=== PATIENT | male | born 1980 | race Caucasian/White ===

== ENCOUNTER 2024-01-02 14:26 | Emergency (ER) | payer MEDICAID, SELFPAY ==
--- NOTE | 2024-01-02 14:30 | XR_ITS ---
Examination: Testicular sonography complete TECHNIQUE: Multiple high resolution grayscale sonographic images testes, assessment arterial inflow venous outflow Doppler spectral analysis carful analysis Exam date and time: January 02, 2024 1507 hours INDICATIONS: Testicular swelling with (nonhealing wound between the right and left testicle with discharge 3 days FINDINGS: Right testis 4.2 x 2.2 x 2.9 cm Epididymis 12 mm Arterial flow testicle. No testicular mass Mild hydrocele Left testis 3.8 x 2.2 x 3.0 cm Epididymis 10 mm Arterial flow testicle. No testicular mass Mild hydrocele Midline between the right and left testicle soft tissue mass with internal echoes 5.6 x 2.6 x 4.7 cm IMPRESSION: Soft tissue abscess between the testicles 5.6 x 2.6 x 4.7 cm, recommend CT scan pelvis post intravenous contrast follow-up
[2024-01-02 14:50] VITALS: BP 164/102; PULSE 100; RESP 18; TEMP 36.9; O2SAT 99; BMI 23.7
[2024-01-02 15:06] LABS: Basophils # (Auto) 0.2 Thou/mm3 (0.0-0.2); Basophils % (Auto) 2 % (0-2.5); Eosinophils # (Auto) 0.5 Thou/mm3 (0.0-0.5); Eosinophils % (Auto) 5 % (0-10); Hematocrit 45.1 % (41.0-53.0); Hemoglobin 15.4 g/dL (13.5-16.0); Immature Granulocytes % (Auto) 1 % (0-0); Immature Granulocytes Auto 0.08 Thou/mm3 (0.00-0.00); Lymphocytes # (Auto) 2.8 Thou/mm3 (1.0-4.8); Lymphocytes % (Auto) 28 % (10-50); Mean Corpuscular HGB Conc 34.1 g/dl (31.0-37.0); Mean Corpuscular Hemoglobin 29.5 pg (25.0-35.0); Mean Corpuscular Volume 86 fL (80-100); Monocytes # (Auto) 0.7 Thou/mm3 (0.0-0.8); Monocytes % (Auto) 7 % (0-12); Neutrophils # (Auto) 5.8 Thou/mm3 (1.8-7.7); Neutrophils % (Auto) 58 % (37-80); Nucleated Red Blood Cell % 0 /100 WBC (0); Platelet Count 376 Thou/mm3 (140-440); RDW Standard Deviation 38.4 fL (35.1-43.9); Red Blood Count 5.22 Miln/mm3 (4.50-5.90); White Blood Count 10.1 Thou/mm3 (3.8-10.6)
[2024-01-02 15:24] LABS: Alanine Aminotransferase 15 U/L (10-49); Albumin, Serum 4.5 gm/dL (3.5-5.0); Albumin/Globulin Ratio 1.4 (1.2-2.2); Alkaline Phosphatase 95 U/L (46-116); Anion Gap 4 (7-16); Aspartate Amino Transferase 18 U/L (0-34); BUN/Creatinine Ratio 13 Ratio (12-20); Bilirubin,Total 0.5 mg/dL (0.3-1.2); Blood Urea Nitrogen 14 mg/dL (9-23); Calcium 9.7 mg/dL (8.3-10.6); Calcium (Corrected) 9.7 mg/dL (8.5-10.1); Carbon Dioxide 31.7 mMol/L (20.0-31.0); Chloride 102 mMol/L (98-107); Creatinine (Component) 1.1 mg/dL (0.6-1.3); Globulin 3.2 gm/dL (2.3-3.5); Glucose 82 mg/dL (74-106); Osmolality,Calculated 275 (275-295); Potassium 4.3 mMol/L (3.4-5.1); Sodium 138 mMol/L (136-145); Total Protein 7.7 gm/dL (5.7-8.2); eGFR > 60 See Note
[2024-01-02 15:45] LABS: Collection Type, Urine Clean Catch
[2024-01-02 15:58] LABS: Amorphous Crystals,Urine Present (Absent); Bilirubin,Urine Negative (Negative); Blood,Urine Negative (Negative); Color,Urine Yellow (Lt Yel-Yel); Glucose, Urine Negative (Negative); Ketones,Urine Negative (Negative); Leukocyte Esterase,Urine Positive (Negative); Nitrite,Urine Negative (Negative); PH,Urine 6.5 (5.0-7.0); Protein,Urine Trace (Neg - Trace); RBC,Urine 8 /hpf (0-3); Specific Gravity,Urine 1.025 (1.001-1.035); Squamous Epithelial Cell,Urine < 1 /hpf (0-5); Urobilinogen,Urine Negative mg/dL (0.0-1.0); WBC,Urine 29 /hpf (0-5)
[2024-01-02 16:06] LABS: Clarity,Urine Hazy (Clear/Hazy); Culture Indicated,Urine Yes
[2024-01-02 16:18] LABS: Amphetamine/Methamp Scrn,U Positive (Negative); Barbiturate Screen,Urine Negative (Negative); Benzodiazepines Screen,Urine Negative (Negative); Benzoylecgonine Screen, Ur Negative (Negative); Fentanyl Screen,Urine Negative (Negative); Opiate Screen,Urine Negative (Negative); THC Screen,Urine Positive (Negative)
--- NOTE | 2024-01-02 16:22 | XR_ITS ---
Examination: CT abdomen with intravenous contrast CT pelvis with intravenous contrast 2-D coronal reconstructions 2-D sagittal reconstructions Date and time of exam:January 02, 2024 1841 hours INDICATIONS: Redness swelling and pain in the testicle region since 3 days ago. CTDI: vol (mGy) 6.81 DLP: (mGycm) 420 Technique: Multiple axial sections of the abdomen and pelvis have been obtained. 64 slice high-resolution scanner used. 3 mm axial sections have been obtained, post intravenous injection 60 cc Isovue-370 2-D sagittal, coronal reconstructions obtained. Low dose protocols were performed. One or more of the following dose reduction techniques were used; automated exposure control, adjustment of the mA and/or KV according to patient size, use of iterative reconstruction technique. Findings: 4 mm pulmonary nodule left lower lobe image 31 No focal liver or splenic lesions Contracted gallbladder No pancreatic or adrenal mass No renal or ureteral calculi, no hydronephrosis Aorta normal size No bowel obstruction Normal appendix No bowel obstruction No diverticulitis Intact urinary bladder Normal seminal vesicles Normal prostate Suggestion of fluid-filled abscess, 28 mm, axial image 247 between the testicles, which is better visualized on the testicular sonogram today Perineum is unremarkable and no perianal abscess is depicted IMPRESSION: 4 mm pulmonary nodule left lower lobe, recommend PA lateral chest follow-up Suggestion of 28 mm fluid-filled abscess between the testicles, which is better visualized on the testicular sonogram today No perineal inflammation no perianal abscess
--- NOTE | 2024-01-02 16:22 | PD.EDRME ---
Rapid Medical Screening Exam RME Arrival date/time: 01/02/24 14:26 43-year-old male presents emergency department complaint of testicular pain and swelling Chief Complaint: Urogenital-Male Time Seen by Provider: 01/02/24 14:30 Vital signs: Vital Signs Temperature 98.4 F 01/02/24 14:50 Pulse Rate 100 01/02/24 14:50 Respiratory Rate 18 01/02/24 14:50 Blood Pressure 164/102 H 01/02/24 14:50 Pulse Oximetry (%) 99 01/02/24 14:50 Oxygen Delivery Method Room Air 01/02/24 14:50
[2024-01-02 17:21] LABS: HIV (1&2) Antibody Rapid Non-Reactive
[2024-01-02 17:43] LABS: Syphilis Reactive (Nonreactive)
[2024-01-02 17:44] LABS: MHATP/TP-PA* See Sep Rpt
--- NOTE | 2024-01-02 19:44 | EDNOTE_ITS ---
ED Male Genitalurinary RME/HPI General Chief complaint: Urogenital-Male Stated complaint: TESTICLES POPPED YESTERDAY Time Seen by Provider: 01/02/24 14:30 Source: patient Arrival date/time: 01/02/24 14:26 Mode of arrival: ambulatory Limitations: no limitations RME / HPI RME / HPI Narrative: 01/02/24 14:26 43-year-old male presents emergency department complaint of testicular pain and swelling Dr. Lindsay?s Main ED Evaluation: 43-year-old male patient who has a history of recent STD treatment approximately four months ago who notes he has worsening swelling of his scrotum for the last week and then for the last two days he had a rupture of pearlings come out of the middle bottom portion of his scrotum. He denied penile discharge. Four months ago he received ?a shot? but did not receive any tablets for his STDs. He is unclear as to his HIV status. Related Data Home Medications ?Medication ?Instructions ?Recorded ?Confirmed amoxicillin 500 mg capsule 500 mg PO TID #0 caps 04/19/14 Previous Rx's ?Medication ?Instructions ?Recorded Sulfamethoxazole/Trimethoprim DS * 1 tab PO BID #20 tabs 04/19/14 (BACTRIM DS *) ibuprofen 600 mg tablet 1 tab PO Q8HR PRN pain #30 tabs 01/09/16 doxycycline hyclate 100 mg capsule 100 mg PO BID #28 caps 01/02/24 metronidazole 500 mg tablet 500 mg PO BID #20 tabs 01/02/24 Allergies Allergy/AdvReac Type Severity Reaction Status Date / Time NKA* Allergy Uncoded 01/02/24 14:29 Review of Systems Review of Systems Systems Reviewed: All systems reviewed, normal except as documented Past Medical History Past Medical History CARDIAC: Positive Hypertension (no meds/wants to atempt diet control); Negative Congestive Heart Failure RESPIRATORY: Negative Chronic Obstructive Pulmonary Disease (COPD) GENITOURINARY: Negative Renal Disease ENDOCRINE: Negative Diabetes Mellitus Type 1 or Diabetes Mellitus Type 2 Social History SMOKING STATUS: Current every day smoker ED Exam Narrative Physical exam: GENERAL APPEARANCE: AxOx4, generally well-appearing, no acute distress. HEENT: NC, AT. MMM. EOMI, clear conjunctiva, oropharynx clear. NECK: Supple without lymphadenopathy. No stiffness or restricted ROM. HEART: Normal rate and regular rhythm, normal S1/S1, no m/r/g LUNGS: CTAB, moving air well. No crackles or wheezes are heard. ABDOMEN: Soft, nontender, nondistended with good bowel sounds heard. BACK: No midline C/T/L spine pain or deformity, No CVAT, no obvious deformity. EXTREMITIES: Without cyanosis, clubbing or edema. GENITALIA: Patient has got a swollen thickened scrotal wall, particularly on the inferior pole between the two testicles, and a one centimeter lesion that has closed without active drainage. MUSCULOSKELETAL: FROM of all major joints, no chest tenderness NEUROLOGICAL: Grossly nonfocal. Alert and oriented, moving all 4 extremities. CN not formally tested but appear grossly intact. Observed to ambulate with normal gait. Skin: Warm and dry without any rash. General Limitations: Present no limitations Course Course Course Narrative: 2323: Patient states he does not want to be transferred to [facility] at this time. He is signing out AGAINST MEDICAL ADVICE. Quality Measures none Orders Category Date Time Status CT Screening NOW Care 01/02/24 16:[address] abdomen pelvis w con Stat Exams 01/02/24 16:22 Completed US testicular Stat Exams 01/02/24 14:30 Completed CBC Stat Lab 01/02/24 14:47 Completed Comprehensive Metabolic Panel Stat Lab 01/02/24 14:47 Completed Drug Screen,Urine Stat Lab 01/02/24 15:26 Completed MHATP/TP-PA* Stat Lab 01/02/24 16:30 Received Syphilis Stat Lab 01/02/24 16:30 Completed UA, C/S IF [Urinalysis, C/S if Indicated] Stat Lab 01/02/24 15:38 Completed Urine Culture Stat Lab 01/02/24 15:38 Received Doxycycline [Vibramycin] Med 01/02/24 20:36 Discontinued 100 mg PO X1 ONE Penicillin G Pot Inj [K Pen G Inj] Med 01/02/24 20:36 Discontinued 2.4 mmu IM X1 ONE Vancomycin Inj 1,000 mg Med 01/02/24 22:19 Active Sodium Chloride 0.9% 250 ml [Ns] 250 ml IV X1 cefTRIAXone/D5w 1gm IV premix [Rocephin/D5w 1gm IV Med 01/02/24 20:36 Discontinued premix] 50 ml IV X1 Vital Signs Vital signs: Vital Signs Temperature 98.4 F 01/02/24 14:50 Pulse Rate 100 01/02/24 14:50 Respiratory Rate 18 01/02/24 14:50 Blood Pressure 164/102 H 01/02/24 14:50 Pulse Oximetry (%) 99 01/02/24 14:50 Oxygen Delivery Method Room Air 01/02/24 14:50 Urogenital - Male MDM Narrative MDM Narrative:: Scribe Attestation: IQuintin am scribing for and in the presence of Dr. Lindsay. Provider Notation: Although this document has been carefully reviewed, there may still be some phonetic and other typographical errors. These errors are purely grammatical due to imperfections in the software program and should not be construed in any way to compromise the substance of the patient's medical care during this visit. Patient data External records reviewed:: [facility] previous records Clinical information provided by:: patient Social determinants that could affect healthcare access:: none Patient has the following chronic illnesses:: HTN, STD How is presenting disease/condition affected by chronic disease/condition?: uneffected by Evaluation data The following diagnostics were reviewed and interpreted by me:: lab results and radiology exam(s) Lab and/or radiology exams considered but not ordered:: None Interpretation Summary: I personally reviewed the radiology data and agree with the radiologist's interpretation. Examination: Testicular sonography complete TECHNIQUE: Multiple high resolution grayscale sonographic images testes, assessment arterial inflow venous outflow Doppler spectral analysis carful analysis Exam date and time: January 02, 2024 1507 hours INDICATIONS: Testicular swelling with (nonhealing wound between the right and left testicle with discharge 3 days FINDINGS: Right testis 4.2 x 2.2 x 2.9 cm Epididymis 12 mm Arterial flow testicle. No testicular mass Mild hydrocele Left testis 3.8 x 2.2 x 3.0 cm Epididymis 10 mm Arterial flow testicle. No testicular mass Mild hydrocele Midline between the right and left testicle soft tissue mass with internal echoes 5.6 x 2.6 x 4.7 cm IMPRESSION: Soft tissue abscess between the testicles 5.6 x 2.6 x 4.7 cm, recommend CT scan pelvis post intravenous contrast follow-up Dictated By: Baltazar Erickson MD Examination: CT abdomen with intravenous contrast CT pelvis with intravenous contrast 2-D coronal reconstructions 2-D sagittal reconstructions Date and time of exam:January 02, 2024 1841 hours INDICATIONS: Redness swelling and pain in the testicle region since 3 days ago. Findings: 4 mm pulmonary nodule left lower lobe image 31 No focal liver or splenic lesions Contracted gallbladder No pancreatic or adrenal mass No renal or ureteral calculi, no hydronephrosis Aorta normal size No bowel obstruction Normal appendix No bowel obstruction No diverticulitis Intact urinary bladder Normal seminal vesicles Normal prostate Suggestion of fluid-filled abscess, 28 mm, axial image 247 between the testicles, which is better visualized on the testicular sonogram today Perineum is unremarkable and no perianal abscess is depicted IMPRESSION: 4 mm pulmonary nodule left lower lobe, recommend PA lateral chest follow-up Suggestion of 28 mm fluid-filled abscess between the testicles, which is better visualized on the testicular sonogram today No perineal inflammation no perianal abscess Dictated By: Baltazar Erickson MD Medications / Prescriptions Medications or Prescriptions considered but not ordered:: None Medication administrations:: Medication Administration History Vancomycin HCl 1,000 mg/ (Sodium Chloride) 250 mls @ 150 mls/hr IV X1 ONE Stop: 01/02/24 23:58 Last Admin: 01/02/24 22:31 Dose: 150 mls/hr Documented By: FERNANDO Discontinued Medications Doxycycline Hyclate (Doxycycline 100 Mg Tablet) 100 mg PO X1 ONE Stop: 01/02/24 20:37 Last Admin: 01/02/24 21:05 Dose: 100 mg Documented By: IGLESIA Ceftriaxone Sodium/Dextrose (Rocephin/D5w 1gm Iv Premix) 50 mls @ 100 mls/hr IV X1 ONE Stop: 01/02/24 21:05 Last Infusion: 01/02/24 22:19 Dose: Infused Documented By: Admin: 01/02/24 21:04 Dose: 100 mls/hr Documented By: IGLESIA Penicillin G Potassium (Penicillin G Pot Inj 20 Mmu Vial) 2.4 mmu IM X1 ONE Stop: 01/02/24 20:37 Last Admin: 01/02/24 23:23 Dose: Not Given Documented By: FERNANDO Non-Admin Reason: Medication Not Available As above, if any Consultations Consultation(s) initiated? (list below): Yes Consultation #1 (Physician, Specialty, Details): Discussed case with [facility]'s transfer center. Discussed patients ED course, exam findings, labs, and radiology results. Awaiting a callback on whether or not they accept the patient for transfer. Time: 22:13 Consultation #2 (Physician, Specialty, Details): Dr. Bello from [facility] accepts the patient for transfer. They are advising that if the patient is transferred to their facility, the patient will be waiting in the ED to be seen until tomorrow morning. Time: 23:14 Diagnosis Urogenital Male Differential Diagnosis: epididymitis and other (testicular abscess, scrotal abscess) Most likely diagnosis given after review of the tests above:: see below Admission Indicated Admission indicated?: not indicated Admission Request Was there a request for admission?: No Disposition Plan Disposition Plan: other (specify) (Patient signed out AMA.) Discharge Plan Plan Patient Disposition: Left Against Medical Advice Prescriptions/Referrals Prescriptions/Med Rec: New doxycycline hyclate 100 mg capsule 100 mg PO BID Qty: 28 0RF metronidazole 500 mg tablet 500 mg PO BID Qty: 20 0RF No Action amoxicillin 500 MG capsule 500 mg PO TID Qty: 0 Sulfamethoxazole/Trimethoprim DS * (BACTRIM DS *) 1 TAB tablet 1 tab PO BID Qty: 20 0RF ibuprofen 600 MG tablet 1 tab PO Q8HR PRN (Reason: pain) Qty: 30 0RF Referrals: Dhruv Bartlett MD [Primary Care Provider] - In 1 week Problem List Clinical Impression: Abscess of testis, Syphilis Patient/Caregiver Discharge Instructions Education Materials: Understanding STIs, Syphilis Additional Instructions: Follow-up with your primary care doctor in 2 to 3 days for recheck. You can return to the emergency department sooner if symptoms worsen or if he notes any new, concerning issues. Print Language: South Sudanese
[2024-01-02 20:00] VITALS: BP 191/113; PULSE 68; RESP 18; TEMP 36.9; O2SAT 100
[2024-01-02] MEDS: cefTRIAXone/D5w 1gm IV premix 50 ML IV (21:04)
[2024-01-02] MEDS: DOXYCYCLINE 100 MG TABLET PO (21:05)
--- NOTE | 2024-01-02 21:10 | PC.NURSE ---
[facility] FAXED PAPERWORK FOR POSSIBLE UROLOGY TRANSFER
[2024-01-02 22:00] VITALS: BP 170/93; PULSE 86; RESP 16; TEMP 36.5; O2SAT 99
[2024-01-02] MEDS: Vancomycin Inj 1,000 MG in SODIUM CHLORIDE 0.9% 250 ML 250 ML 150 MG IV (22:31)
--- NOTE | 2024-01-02 23:26 | PC.NURSE ---
THIS PT IS ACCEPTED TO [facility] BY DR. PIERCE. THIS IS A ER:ER TRANSFER AND NUMBER FOR REPORT IS [phone]. BIN WAS THE FACILITY REP I SPOKE TO FOR ACCEPTING INFORMATION.
--- NOTE | 2024-01-02 23:32 | PC.NURSE ---
I PUT A CALL OUT TO [facility] AND INFORMED THEM THAT THIS PT IS SIGNING OUT AMA
--- NOTE | 2024-01-02 23:32 | PC.NURSE ---
WAS JUST ADVISED BY PRIMARY RN THAT PATIENT IS SIGNING OUT AMA BECAUSE HE STATES HE DOESN'T NEED TO GO TO [place]
--- NOTE | 2024-01-02 23:38 | PC.NURSE ---
Pt refusing transfer to higher level of care, and signed the AMA form, Pt however, will be DC
--- NOTE | 2024-01-02 23:45 | PC.NURSE ---
Pt agrees to wait until current antibiotics to finish and then will be DC.
== END 2024-01-03 00:01 | disposition home or self-care (01) ==
PROVIDERS: Nurse Practitioner Primary Care; Emergency Provider Emergency Medicine; PCP Family Medicine
DX: N45.4 Abscess of epididymis or testis (principal); A53.9 Syphilis, unspecified
CPT/HCPCS: 36415; 74177; 76870; 80053; 80307; 81001; 85025; 86703; 86780; 87086; 96365; 96367; 99285; A4649; J0696; J3371; J7050; Q9967; A9270; J3370

== ENCOUNTER 2024-01-31 08:46 | Emergency (ER) | payer MEDICAID, SELFPAY ==
[2024-01-31 08:55] VITALS: BP 177/117; PULSE 119; RESP 17; TEMP 37; O2SAT 99; BMI 22.9
--- NOTE | 2024-01-31 09:22 | XR_ITS ---
Examination: CT pelvis with intravenous contrast. 2-D sagittal and coronal reconstructions. Date and time of exam:January 31, 2024 1243 hours INDICATIONS: Onset testicular pain beginning 2 weeks ago scrotal edema and pain CTDI: vol (mGy) :7.22 DLP: (mGycm) : 291 Technique: Multiple 3 mm axial sections of the pelvis have been obtained with the 64 slice high resolution scanner. 2-D sagittal and coronal reconstructions. Intravenous administration 60 cc Isovue-370 Low dose protocols were performed. One or more of the following dose reduction techniques were used; automated exposure control, adjustment of the mA and/or KV according to patient size, use of iterative reconstruction technique. Findings: Nonobstructive bowel gas pattern No pericecal inflammatory change No diverticulitis Urinary bladder wall thickening up to 3 mm Abundant stool in the rectum No prostatomegaly No inguinal hernias Abscess in the perineum at the base of the scrotum, axial image 144, measuring 4.3 x 2.5 x 5.2 cm IMPRESSION: Large abscess in the perineum, at the base of the scrotum, 4.3 x 2.5 x 5.2 cm Recommend testicular sonography follow-up
--- NOTE | 2024-01-31 09:42 | EDNOTE_ITS ---
ED Male Genitalurinary RME/HPI General Chief complaint: Urogenital-Male Stated complaint: TESTICULAR PAIN/SWELLING Time Seen by Provider: 01/31/24 08:58 Arrival date/time: 01/31/24 08:46 RME / HPI RME / HPI Narrative: This section includes all my notes and documentations, including HPI, PE, and ED course.? Raj Lawson MD HPI: 43 year old male here with a couple month history of scrotal swelling and redness and warmth and pain. Was here about a week ago. Was diagnosed with abscess and arranged transfer. But patient left AMA. He's here today because he's getting worse. With subjective fever and chill and aches. No other complaints. ROS: All negative except as documented in HPI. Physical Exam: General:? Alert and oriented.? No acute distress when remaining still. Eyes:? Conjunctivae and lids clear.? ENT:? No nasal congestion.? Neck:? Supple.? Heart:? RRR.? Lungs:? No respiratory distress.? Good air movement.? No rhonchi, wheezing, rales.?? Skin:? Warm and dry.??Grapefruit sized scrotal edema noted with erythema and calor and tenderness. Neuro:? Alert and oriented X 3.? I reviewed EMS and retirement notes. My review of the pelvic CT report is laarge abscess in the perineum, at the base of the scrotum, 4.3 x 2.5 x 5.2 cm. Blood tests and urine tests reamarkable for WBC 20.5, UTI, and Positive Syphilis Serology. At this point, diagnoses include?Scrotal Abscess, UTI, Syphilis. Treatment here included?Levaquin, Toradol, Tylenol, and Morphine. He remained stable. I discussed the case with Dr. Segura ([facility] Urology).? About the presentation and exam and diagnostics and treatments here.? And need of further care there.? Will accept the patient. Raj Lawson MD Related Data Home Medications ?Medication ?Instructions ?Recorded ?Confirmed amoxicillin 500 mg capsule 500 mg PO TID #0 caps 04/19/14 Previous Rx's ?Medication ?Instructions ?Recorded Sulfamethoxazole/Trimethoprim DS * 1 tab PO BID #20 tabs 04/19/14 (BACTRIM DS *) ibuprofen 600 mg tablet 1 tab PO Q8HR PRN pain #30 tabs 01/09/16 doxycycline hyclate 100 mg capsule 100 mg PO BID #28 caps 01/02/24 metronidazole 500 mg tablet 500 mg PO BID #20 tabs 01/02/24 Allergies Allergy/AdvReac Type Severity Reaction Status Date / Time No Known Allergies Allergy Verified 01/31/24 08:50 Course Quality Measures none Orders Category Date Time Status CT Screening NOW Care 01/31/24 09:22 Completed Saline [Insert IV] NOW Care 01/31/24 09:22 Completed Straight [In and Out Catheter] X1 Care 01/31/24 09:23 Completed Referral - Farm Management Agent Stat Cons 01/31/24 13:52 Active Transfer to another facility [Transfer/Discharge] Stat Discharge 01/31/24 16:[address] pelvis w con Stat Exams 01/31/24 09:22 Completed Blood Culture (Lab) Stat Lab 01/31/24 09:48 Completed CBC Stat Lab 01/31/24 09:48 Completed CMP [Comprehensive Metabolic Panel] Stat Lab 01/31/24 09:48 Completed CRP [C-Reactive Protein] Stat Lab 01/31/24 09:48 Completed Drug Screen,Urine Stat Lab 01/31/24 10:52 Completed ESR [Sed Rate (ESR)] Stat Lab 01/31/24 09:48 Completed Lactate (Lactic Acid) Stat Lab 01/31/24 09:48 Completed MHATP/TP-PA* Stat Lab 01/31/24 09:48 Completed Magnesium Stat Lab 01/31/24 09:48 Completed Procalcitonin Stat Lab 01/31/24 09:48 Completed Syphilis Stat Lab 01/31/24 09:48 Completed UA [Urinalysis] Stat Lab 01/31/24 10:52 Completed Acetaminophen Ivpb [Ofirmev Inj] Med 01/31/24 16:17 Discontinued 1,000 mg in 100 ml IV NOW Ketorolac Inj [Toradol Inj] Med 01/31/24 09:42 Discontinued 30 mg IVP X1 ONE Levofloxacin/D5w 750Mg Ivpb [Levaquin Ivpb] Med 01/31/24 09:30 Discontinued 750 mg in 150 ml IV QDAY Morphine Inj Med 01/31/24 11:03 Discontinued 4 mg IVP X1 ONE Morphine Inj Med 01/31/24 16:17 Discontinued 6 mg IVP X1 ONE Vital Signs Vital signs: Vital Signs Temperature 98.6 F 01/31/24 08:55 Pulse Rate 119 H 01/31/24 08:55 Respiratory Rate 17 01/31/24 08:55 Blood Pressure 177/117 H 01/31/24 08:55 Pulse Oximetry (%) 99 01/31/24 08:55 Oxygen Delivery Method Room Air 01/31/24 08:55 Urogenital - Male Patient data External records reviewed:: [facility] previous records Clinical information provided by:: patient Social determinants that could affect healthcare access:: substance use Patient has the following chronic illnesses:: substance abuse and syphilis How is presenting disease/condition affected by chronic disease/condition?: exacerbated by Evaluation data The following diagnostics were reviewed and interpreted by me:: lab results and radiology exam(s) Lab and/or radiology exams considered but not ordered:: none Interpretation Summary: scrotal abscess and uti and syphilis Medications / Prescriptions Medications or Prescriptions considered but not ordered:: none Medication administrations:: Medication Administration History Discontinued Medications Levofloxacin/Dextrose (Levaquin Ivpb) 750 mg in 150 mls @ 100 mls/hr IV QDAY WILFRIDO Stop: 02/07/24 09:29 Last Infusion: 01/31/24 11:34 Dose: Infused Documented By: Admin: 01/31/24 10:04 Dose: 100 mls/hr Documented By: PARTHA Acetaminophen (Ofirmev Inj) 1,000 mg in 100 mls @ 250 mls/hr IV NOW ONE Stop: 01/31/24 16:40 Last Infusion: 01/31/24 18:34 Dose: Infused Documented By: Admin: 01/31/24 16:43 Dose: 250 mls/hr Documented By: TM Ketorolac Tromethamine (Ketorolac Inj 30 Mg/Ml Vial) 30 mg IVP X1 ONE Stop: 01/31/24 09:43 Last Admin: 01/31/24 10:04 Dose: 30 mg Documented By: TM Morphine Sulfate (Morphine Sulf Inj 10 Mg/Ml Vial) 4 mg IVP X1 ONE Stop: 01/31/24 11:04 Last Admin: 01/31/24 12:54 Dose: 4 mg Documented By: TM Morphine Sulfate (Morphine Sulf Inj 10 Mg/Ml Vial) 6 mg IVP X1 ONE Stop: 01/31/24 16:18 Last Admin: 01/31/24 16:43 Dose: 6 mg Documented By: TM levaquin and todadol and tylenol and levaquin Consultations Consultation(s) initiated? (list below): No Diagnosis Urogenital Male Differential Diagnosis: urinary tract infection, urethritis, epididymitis, prostatitis, acute retention of urine, inguinal hernia and other (abscess and sti) Most likely diagnosis given after review of the tests above:: scrotal abscess and uti and syphilis Admission Indicated Admission indicated?: not indicated Explain why admission is indicated or not indicated:: no urology service here Admission Request Was there a request for admission?: No Disposition Plan Disposition Plan: Transfer Discharge Plan Plan Patient Disposition: [facility] Facility Pt Being Transferred to: [facility] Service Needed for Transfer: Urology Patient condition on transfer: Stable Prescriptions/Referrals Prescriptions/Med Rec: No Action amoxicillin 500 MG capsule 500 mg PO TID Qty: 0 Sulfamethoxazole/Trimethoprim DS * (BACTRIM DS *) 1 TAB tablet 1 tab PO BID Qty: 20 0RF ibuprofen 600 MG tablet 1 tab PO Q8HR PRN (Reason: pain) Qty: 30 0RF doxycycline hyclate 100 mg capsule 100 mg PO BID Qty: 28 0RF metronidazole 500 mg tablet 500 mg PO BID Qty: 20 0RF Referrals: No Primary/Family,Physician [Primary Care Provider] - In 1 week Problem List Clinical Impression: Scrotal abscess, UTI (urinary tract infection), Syphilis Patient/Caregiver Discharge Instructions Print Language: Turkmen Stand Alone Forms: [employer] Award Info., Patient Portal Info Letter
[2024-01-31] MEDS: LEVOFLOXACIN/D5W 750MG IVPB 750 MG/150 ML BAG 100 MG IV (10:04)
[2024-01-31] MEDS: KETOROLAC INJ 30 MG/ML VIAL IVP (10:04)
[2024-01-31 10:06] LABS: Lactate (Lactic Acid) 1.1 mMol/L (0.4-2.0)
[2024-01-31 10:08] LABS: Basophils # (Auto) 0.1 Thou/mm3 (0.0-0.2); Basophils % (Auto) 1 % (0-2.5); Eosinophils # (Auto) 0.2 Thou/mm3 (0.0-0.5); Eosinophils % (Auto) 1 % (0-10); Hematocrit 44.5 % (41.0-53.0); Hemoglobin 15.5 g/dL (13.5-16.0); Immature Granulocytes % (Auto) 1 % (0-0); Immature Granulocytes Auto 0.17 Thou/mm3 (0.00-0.00); Lymphocytes # (Auto) 1.7 Thou/mm3 (1.0-4.8); Lymphocytes % (Auto) 8 % (10-50); Mean Corpuscular HGB Conc 34.8 g/dl (31.0-37.0); Mean Corpuscular Volume 86 fL (80-100); Monocytes # (Auto) 2.2 Thou/mm3 (0.0-0.8); Monocytes % (Auto) 11 % (0-12); Neutrophils # (Auto) 16.1 Thou/mm3 (1.8-7.7); Neutrophils % (Auto) 79 % (37-80); Nucleated Red Blood Cell % 0 /100 WBC (0); Platelet Count 241 Thou/mm3 (140-440); RDW Standard Deviation 39.8 fL (35.1-43.9); Red Blood Count 5.16 Miln/mm3 (4.50-5.90); White Blood Count 20.5 Thou/mm3 (3.8-10.6)
[2024-01-31 10:18] LABS: Sed Rate (ESR) 63 mm/hr (0-15)
[2024-01-31 10:43] LABS: Alanine Aminotransferase 54 U/L (10-49); Albumin, Serum 4.6 gm/dL (3.5-5.0); Albumin/Globulin Ratio 1.5 (1.2-2.2); Alkaline Phosphatase 102 U/L (46-116); Anion Gap 4 (7-16); Aspartate Amino Transferase 29 U/L (0-34); BUN/Creatinine Ratio 14 Ratio (12-20); Bilirubin,Total 0.6 mg/dL (0.3-1.2); Blood Urea Nitrogen 14 mg/dL (9-23); C-Reactive Protein 12.7 mg/dL (0.0-0.9); Calcium 9.6 mg/dL (8.3-10.6); Calcium (Corrected) 9.6 mg/dL (8.5-10.1); Chloride 99 mMol/L (98-107); Estimated Creatinine Clearance 108.5 mL/min (>60); Glucose 104 mg/dL (74-106); Magnesium 1.8 mg/dL (1.6-2.6); Osmolality,Calculated 265 (275-295); Potassium 4.4 mMol/L (3.4-5.1); Procalcitonin 0.14 ng/ml (0.0-0.49); Sodium 132 mMol/L (136-145); Total Protein 7.6 gm/dL (5.7-8.2); eGFR > 60 See Note
[2024-01-31 11:08] LABS: Syphilis Reactive (Nonreactive)
[2024-01-31 11:09] LABS: MHATP/TP-PA* See Sep Rpt
[2024-01-31 11:22] LABS: Bacteria,Urine 4+; Bilirubin,Urine Negative (Negative); Blood,Urine Negative (Negative); Clarity,Urine Clear (Clear/Hazy); Collection Type, Urine Clean Catch; Color,Urine Yellow (Lt Yel-Yel); Glucose, Urine Negative (Negative); Ketones,Urine Negative (Negative); Leukocyte Esterase,Urine Positive (Negative); Nitrite,Urine Negative (Negative); Protein,Urine Trace (Neg - Trace); RBC,Urine 4 /hpf (0-3); Specific Gravity,Urine 1.029 (1.001-1.035); Squamous Epithelial Cell,Urine 0 /hpf (0-5); Urobilinogen,Urine Negative mg/dL (0.0-1.0); WBC,Urine 58 /hpf (0-5)
[2024-01-31 11:24] LABS: Amphetamine/Methamp Scrn,U Positive (Negative); Barbiturate Screen,Urine Negative (Negative); Benzodiazepines Screen,Urine Negative (Negative); Benzoylecgonine Screen, Ur Negative (Negative); Fentanyl Screen,Urine Negative (Negative); Opiate Screen,Urine Negative (Negative); THC Screen,Urine Positive (Negative)
[2024-01-31] MEDS: MORPHINE SULF INJ 10 MG/ML VIAL 4 MG IVP (12:54)
[2024-01-31 13:06] VITALS: BP 173/102; PULSE 102; RESP 19; TEMP 37.8; O2SAT 99
--- NOTE | 2024-01-31 14:49 | PC.CM ---
Addendum entered by Yaritza Munguia RN 01/31/24 18:03: supervisor pipe joints time set for 1900.[facility] will come sooner if they a unit available. I gave packet to ED charged nurse. Addendum entered by Yaritza Munguia RN 01/31/24 17:13: I took the packet to the ED so they can set up transport. I let them know I am working on the other ED transfer so I asked if they could finish by setting up transport. Addendum entered by Yaritza Munguia RN 01/31/24 16:31: Patient has been accepted to [facility] with Dr. Segura ED to ED. Number to call and give report [phone]. I will get packet together and make a CD for transfer. Addendum entered by Yaritza Munguia RN 01/31/24 15:12: I spoke to Mary at [facility] and and they do not have urology international specialist. Addendum entered by Yaritza Munguia RN 01/31/24 14:58: I faxed over information to [facility] and I pushed over images. Original Note: 1400 Received a referral for patient for urology services for large abscess between his testicles.
[2024-01-31 15:17] VITALS: BP 181/105; PULSE 101; RESP 19; TEMP 38.2; O2SAT 99
[2024-01-31 16:35] VITALS: BP 169/115; PULSE 109; RESP 17; TEMP 38.1; O2SAT 99
[2024-01-31] MEDS: MORPHINE SULF INJ 10 MG/ML VIAL 6 MG IVP (16:43)
[2024-01-31] MEDS: ACETAMINOPHEN IVPB 1,000 MG/100 ML VIAL 250 MG IV (16:43)
[2024-01-31 18:12] VITALS: BP 160/97; PULSE 109; RESP 18; TEMP 37.6; O2SAT 99
== END 2024-01-31 19:18 | disposition short-term general hospital (02) ==
PROVIDERS: Emergency Provider Emergency Medicine
DX: N49.2 Inflammatory disorders of scrotum (principal); N39.0 Urinary tract infection, site not specified; A53.9 Syphilis, unspecified
CPT/HCPCS: 36415; 72193; 80053; 80307; 81001; 83605; 83735; 84145; 85025; 85652; 86140; 86780; 87040; 87491; 87591; 87661; 96365; 96366; 96375; 99285; A4649; J0131; J1885; J1956; J2270; Q9967